=== PATIENT | female | born 1975 | race Caucasian/White ===

== ENCOUNTER 2020-02-25 08:04 | Emergency (ER) | payer MEDICAID ==
[~2020-02-25] VITALS: Ht 165.1 cm; Wt 83.9 kg
[2020-02-25] MEDS ORDERED: MORPHINE SULFATE 4 MG/ML CPJ (NOT FOR IM USE) IV STA (08:42)
[2020-02-25] MEDS ORDERED: FAMOTIDINE 20MG/2ML VIAL IV STA (08:42)
[2020-02-25] MEDS ORDERED: ONDANSETRON HCL 4MG/2ML INJ IV STA (08:42)
[2020-02-25] MEDS ORDERED: SODIUM CHLORIDE 0.9% 1,000 ML IV ONE (08:42)
[2020-02-25 09:05] LABS: BASOPHILS % 0.3 % (0.0-2.0); EOSINOPHILS % 0.2 % (0.0-5.0); HEMATOCRIT. 35.5 % (36.0-48.0); HEMOGLOBIN. 12.1 g/dL (12.0-16.0); LYMPHOCYTES % 13.9 % (20.0-50.0); MEAN CORPUSCULAR HEMOGLOBIN 29.5 pg (28.0-32.0); MEAN CORPUSCULAR VOLUME 86.2 fL (81.0-99.0); MEAN PLATELET VOLUME 7.5 fl (7.4-10.4); MONOCYTES % 4.4 % (2.0-8.0); NEUTROPHILS % 81.2 % (40.0-76.0); PLATELET 326 x1000/uL (130-400); RED BLOOD CELL COUNT 4.12 mill/uL (4.2-5.4)
[2020-02-25 09:12] LABS: CHLORIDE 108 mEq/L (98-107)
[2020-02-25 09:13] LABS: INR 0.9; PROTHROMBIN TIME 10.3 sec (9.6-11.0)
[2020-02-25 09:28] LABS: CLARITY URINE TURBID (CLEAR); COLOR URINE RED (YELLOW); KETONES URINE NEGATIVE (NEGATIVE); LEUKOCYTE ESTERASE URINE 1+ (NEGATIVE); NITRITE URINE NEGATIVE (NEGATIVE); OCCULT BLOOD URINE 3+ (NEGATIVE); PROTEIN URINE 2+ (NEGATIVE); SPECIFIC GRAVITY URINE 1.024 (1.005-1.030); UROBILINOGEN URINE 0.2 E.U./dL (0.2-1.0)
[2020-02-25] MEDS ORDERED: VISCOUS LIDOCAINE 2% 15 ML UDC MM STA (11:09)
[2020-02-25] MEDS ORDERED: MAGNESIUM/ALUMINUM HYDROXIDE/SIMETHICONE 30ML UDC PO ONE (11:15)
[2020-02-25 11:40] VITALS: BP 119/60
== END 2020-02-25 11:49 | disposition home or self-care (01) ==
LOC: ER 08:04
DX: K80.51 Calculus of bile duct without cholangitis or cholecystitis with obstruction (principal); R11.2 Nausea with vomiting, unspecified; N39.0 Urinary tract infection, site not specified; Z98.890 Other specified postprocedural states
CPT/HCPCS: 36415; 71045; 76705; 80053; 81003; 81025; 83690; 84484; 85025; 85610; 93005; 96361; 96374; 96375; 99285; J2270; J2405; J3490; J7030

== ENCOUNTER 2020-02-27 08:35 | Inpatient (IN) | payer MEDICAID ==
[~2020-02-27] VITALS: Ht 162.6 cm; Wt 106.8 kg
[2020-02-27] MEDS ORDERED: KETOROLAC 60MG/2ML VIAL IM STA (09:22)
[2020-02-27] MEDS ORDERED: HYDROCODONE/ACETAMINOPHEN 5/325MG TABLET PO STA (09:22)
[2020-02-27] MEDS ORDERED: ONDANSETRON HCL 4MG/2ML INJ IM STA (09:22)
[2020-02-27 09:52] LABS: CLARITY URINE CLEAR (CLEAR); COLOR URINE ORANGE (YELLOW); KETONES URINE TRACE (NEGATIVE); LEUKOCYTE ESTERASE URINE NEGATIVE (NEGATIVE); NITRITE URINE NEGATIVE (NEGATIVE); OCCULT BLOOD URINE 2+ (NEGATIVE); PH URINE 5.5 (4.5-8.0); PROTEIN URINE 1+ (NEGATIVE); SPECIFIC GRAVITY URINE 1.026 (1.005-1.030)
[2020-02-27 11:41] LABS: HEMATOCRIT. 35.8 % (36.0-48.0); HEMOGLOBIN. 12.2 g/dL (12.0-16.0); MEAN CORPUSCULAR HEMOGLOBIN 29.2 pg (28.0-32.0); MEAN CORPUSCULAR VOLUME 85.5 fL (81.0-99.0); MEAN PLATELET VOLUME 7.5 fl (7.4-10.4); PLATELET 322 x1000/uL (130-400); RED BLOOD CELL COUNT 4.19 mill/uL (4.2-5.4); RED CELL DISTRIBUTION WIDTH 14.4 % (11.6-14.6)
[2020-02-27 11:49] LABS: CHLORIDE 104 mEq/L (98-107)
[2020-02-27] MEDS ORDERED: SODIUM CHLORIDE 0.9% 1,000 ML IV ONE (12:43)
[2020-02-27 12:54] LABS: PLATELET ESTIMATE NORMAL
[2020-02-27] MEDS ORDERED: METRONIDAZOLE 500 MG PREMIX 100 ML IV ONE (13:00)
[2020-02-27] MEDS ORDERED: CEFTRIAXONE 2 G PREMIX 50 ML IV ONE (13:00)
[2020-02-27 16:00] VITALS: BP 105/82
[2020-02-27 16:10] VITALS: BP 105/60
[2020-02-27] MEDS ORDERED: CLONIDINE 0.1MG TABLET PO PRN (18:30)
[2020-02-27] MEDS ORDERED: LORAZEPAM 0.5MG TABLET PO PRN (18:30)
[2020-02-27] MEDS ORDERED: HYDROMORPHONE HCL/PF 2MG/ML CPJ IV PRN (18:30)
[2020-02-27] MEDS ORDERED: IPRATROPIUM/ALBUTEROL 0.5-3(2.5)MG/3ML NEB HHN PRN (18:30)
[2020-02-27] MEDS ORDERED: HYDROCODONE/ACETAMINOPHEN 5/325MG TABLET PO PRN (18:30)
[2020-02-27] MEDS ORDERED: ONDANSETRON HCL 4MG/2ML INJ IV PRN (18:30)
[2020-02-27] MEDS ORDERED: ACETAMINOPHEN 325MG TABLET PO PRN (18:30)
[2020-02-27 20:00] VITALS: BP 106/53
[2020-02-27] MEDS: LACTATED RINGERS 1,000 ML IV SCH (20:51)
[2020-02-27] MEDS: CEFTRIAXONE 1 G PREMIX 50 ML IV SCH (20:52)
[2020-02-27] MEDS ORDERED: KCL 20MEQ/100ML PREMIX 100 ML IV NR (21:00)
[2020-02-27] MEDS: METRONIDAZOLE 500 MG PREMIX 100 ML IV SCH (22:13)
[2020-02-28] VITALS: BP 101/57
[2020-02-28 04:00] VITALS: BP 105/52
[2020-02-28] MEDS: LACTATED RINGERS 1,000 ML IV SCH (05:15)
[2020-02-28] MEDS: METRONIDAZOLE 500 MG PREMIX 100 ML IV SCH ×3 (05:16→22:52)
[2020-02-28 06:42] LABS: HEMATOCRIT. 33.2 % (36.0-48.0); MEAN CORPUSCULAR HEMOGLOBIN 28.6 pg (28.0-32.0); MEAN CORPUSCULAR VOLUME 86.4 fL (81.0-99.0); PLATELET 292 x1000/uL (130-400); RED BLOOD CELL COUNT 3.85 mill/uL (4.2-5.4); RED CELL DISTRIBUTION WIDTH 14.4 % (11.6-14.6)
[2020-02-28 07:53] LABS: CHLORIDE 105 mEq/L (98-107)
[2020-02-28 08:00] VITALS: BP 109/59
[2020-02-28] MEDS ORDERED: SKIN ADHESIVE 0.7 GM EA TOP ONE ×2 (08:14→08:15)
[2020-02-28] MEDS ORDERED: BUPIVACAINE HCL 0.5% (5MG/ML) 50ML ONE (08:15)
[2020-02-28 08:41] LABS: HCG SCREEN NEGATIVE
[2020-02-28] MEDS ORDERED: PROPOFOL 200MG/20ML VIAL IV ONE (09:40)
[2020-02-28] MEDS ORDERED: NEOSTIGMINE METHYLSULFATE 1MG/ML 10 ML VIAL ONE (09:40)
[2020-02-28] MEDS ORDERED: FENTANYL CITRATE/PF 50MCG/ML 2ML VIAL ONE (09:40)
[2020-02-28] MEDS ORDERED: ROCURONIUM BROMIDE 10MG/ML VIAL 5ML IV ONE (09:40)
[2020-02-28] MEDS ORDERED: CEFAZOLIN SODIUM 1000MG/VIAL ONE (09:41)
[2020-02-28] MEDS ORDERED: ONDANSETRON HCL 4MG/2ML INJ ONE (09:41)
[2020-02-28] MEDS ORDERED: SODIUM CHLORIDE 0.9% 10ML VIAL ONE (09:41)
[2020-02-28] MEDS ORDERED: SUCCINYLCHOLINE CHLORIDE 200MG/10ML IV ONE (09:41)
[2020-02-28] MEDS ORDERED: LIDOCAINE HCL/PF 1% 10 MG/ML 5ML VIAL ONE (09:41)
[2020-02-28] MEDS ORDERED: METOCLOPRAMIDE HCL 10MG/2ML VIAL ONE (09:41)
[2020-02-28] MEDS ORDERED: GLYCOPYRROLATE 0.2 MG/ML 2ML VIAL ONE (09:41)
[2020-02-28] MEDS ORDERED: MIDAZOLAM HCL 2 MG/2 ML VIAL ONE (09:41)
[2020-02-28] MEDS ORDERED: MEPERIDINE HCL/PF 25MG/ML CPJ IV PRN (10:00)
[2020-02-28] MEDS ORDERED: ONDANSETRON HCL 4MG/2ML INJ IV PRN ×2 (10:00)
[2020-02-28] MEDS ORDERED: HYDROCODONE/ACETAMINOPHEN 5/325MG TABLET PO PRN (10:00)
[2020-02-28] MEDS ORDERED: SODIUM CHLORIDE 0.9% 1,000 ML IV ONE (10:00)
[2020-02-28] MEDS ORDERED: MORPHINE SULFATE 2 MG/ML CPJ (NOT FOR IM USE) IV PRN ×2 (10:00)
[2020-02-28] MEDS ORDERED: HYDROMORPHONE HCL/PF 2MG/ML CPJ IV PRN (10:00)
[2020-02-28] MEDS ORDERED: MORPHINE SULFATE 4 MG/ML CPJ (NOT FOR IM USE) IV PRN (10:00)
[2020-02-28] MEDS ORDERED: ALBUMIN HUMAN 12.5G/250ML (5%) IV ONE (10:20)
[2020-02-28 13:49] LABS: PLATELET ESTIMATE NORMAL
[2020-02-28] MEDS: DEXT 5%/0.45% NACL KCL 20MEQ/L 1,000 ML IV SCH (14:35)
[2020-02-28 16:00] VITALS: BP 108/69
[2020-02-28] MEDS: HYDROCODONE/ACETAMINOPHEN 5/325MG TABLET PO PRN ×2 (17:41→22:58)
[2020-02-28 20:00] VITALS: BP 106/66
[2020-02-28] MEDS: CEFTRIAXONE 1 G PREMIX 50 ML IV SCH (20:40)
[2020-02-28] MEDS: SODIUM CHLORIDE 0.9% INJ 3ML FLUSH IVF SCH (22:52)
[2020-02-29] VITALS: BP 106/85
[2020-02-29 04:00] VITALS: BP 100/50
[2020-02-29] MEDS: METRONIDAZOLE 500 MG PREMIX 100 ML IV SCH ×2 (05:11→15:02)
[2020-02-29] MEDS: SODIUM CHLORIDE 0.9% INJ 3ML FLUSH IVF SCH ×2 (05:11→20:46)
[2020-02-29] MEDS: DEXT 5%/0.45% NACL KCL 20MEQ/L 1,000 ML IV SCH ×2 (05:11→20:47)
[2020-02-29 08:00] VITALS: BP 113/73
[2020-02-29] MEDS: HYDROCODONE/ACETAMINOPHEN 5/325MG TABLET PO PRN (10:13)
[2020-02-29] MEDS ORDERED: HYDR-4001 MT (10:33)
[2020-02-29 12:00] VITALS: BP 120/70
[2020-02-29] MEDS: DOCUSATE SODIUM 100MG CAPSULE PO SCH ×2 (12:08→17:11)
[2020-02-29 15:40] VITALS: BP 126/82
[2020-02-29 20:00] VITALS: BP 121/78
[2020-02-29] MEDS: CEFTRIAXONE 1 G PREMIX 50 ML IV SCH (20:46)
[2020-03-01] VITALS: BP 105/61
[2020-03-01] MEDS: METRONIDAZOLE 500 MG PREMIX 100 ML IV SCH ×2 (01:37→05:01)
[2020-03-01] MEDS: HYDROCODONE/ACETAMINOPHEN 5/325MG TABLET PO PRN (01:49)
[2020-03-01] MEDS: DEXT 5%/0.45% NACL KCL 20MEQ/L 1,000 ML IV SCH (05:00)
[2020-03-01] MEDS: SODIUM CHLORIDE 0.9% INJ 3ML FLUSH IVF SCH (05:01)
[2020-03-01 05:57] LABS: CHLORIDE 105 mEq/L (98-107)
[2020-03-01 06:04] LABS: BASOPHILS % 0.4 % (0.0-2.0); EOSINOPHILS % 0.8 % (0.0-5.0); HEMATOCRIT. 29.2 % (36.0-48.0); HEMOGLOBIN. 9.7 g/dL (12.0-16.0); MEAN CORPUSCULAR HEMOGLOBIN 28.7 pg (28.0-32.0); MEAN CORPUSCULAR VOLUME 86.4 fL (81.0-99.0); MEAN PLATELET VOLUME 7.7 fl (7.4-10.4); MONOCYTES % 8.9 % (2.0-8.0); NEUTROPHILS % 65.9 % (40.0-76.0); PLATELET 300 x1000/uL (130-400); RED BLOOD CELL COUNT 3.38 mill/uL (4.2-5.4); RED CELL DISTRIBUTION WIDTH 14.7 % (11.6-14.6)
[2020-03-01 08:00] VITALS: BP 121/84
[2020-03-01] MEDS: DOCUSATE SODIUM 100MG CAPSULE PO SCH (09:45)
[2020-03-01 10:30] VITALS: BP 104/60
== END 2020-03-01 12:00 | disposition home or self-care (01) | DRG 710 ==
LOC: ER 08:35 → ENRESERV 15:03 → 6EST 16:05
PROVIDERS: ADMIT Internal Medicine; ATTEND Internal Medicine
PROC: 0FT44ZZ Resection of Gallbladder, Percutaneous Endoscopic Approach (ICD-10-PCS; principal; 2020-02-28)
DX: A41.9 Sepsis, unspecified organism (principal); K80.62 Calculus of gallbladder and bile duct with acute cholecystitis without obstruction; K82.1 Hydrops of gallbladder; D72.825 Bandemia; E87.6 Hypokalemia; R80.9 Proteinuria, unspecified; R31.9 Hematuria, unspecified; Z98.891 History of uterine scar from previous surgery; Z79.899 Other long term (current) drug therapy
CPT/HCPCS: 36415; 73706; 76705; 80048; 80053; 80061; 80076; 81003; 83036; 84703; 85025; 88304; 93005; 99285; J0330; J0690; J0696; J1170; J1885; J2250; J2270; J2405; J2704; J2710; J2765; J3010; J3480; J3490; J7030; J7120; P9041

== ENCOUNTER 2022-03-02 21:04 | Emergency (ER) | payer MEDICAID ==
[~2022-03-02] VITALS: Ht 160 cm; Wt 93.0 kg
[~2022-03-02 21:04] MED LIST: HYDR-4001 MT
[2022-03-02 21:28] VITALS: BP 187/91
[2022-03-02] MEDS ORDERED: FAMOTIDINE 20MG/2ML VIAL IV ONE (22:00)
[2022-03-02] MEDS ORDERED: METHYLPREDNISOLONE SOD SUCC 125 MG/2 ML VIAL IV ONE (22:00)
[2022-03-02] MEDS ORDERED: DIPHENHYDRAMINE 50MG/ML VIAL IV ONE (22:00)
[2022-03-02] MEDS ORDERED: DIPH25TA62 PO (23:14)
[2022-03-02] MEDS ORDERED: TOPUD PO (23:14)
== END 2022-03-02 23:25 | disposition home or self-care (01) ==
LOC: ER 21:04
DX: T78.40XA Allergy, unspecified, initial encounter (principal); R21 Rash and other nonspecific skin eruption; X58.XXXA Exposure to other specified factors, initial encounter
CPT/HCPCS: 73620; 81025; 96374; 96375; 99284; J1200; J2930; J3490